=== PATIENT | male | born 1965 | race Caucasian/White ===

== ENCOUNTER 2021-08-04 20:31 | Emergency (ER) | payer BC ==
[2021-08-04] MEDS ORDERED: predniSONE 20 MG TAB ONE (21:30)
[2021-08-04] MEDS ORDERED: HYDROCODONE/APAP 10/325 TAB ONE (21:30)
--- NOTE | 2021-08-04 22:20 | EDPHYS ---
Physician Documentation [facility] Name: Ad Ham Age: 56 yrs Sex: Male : 1965 Arrival Date: 08/04/2021 Time: 20:35 Bed 3 Private MD: ED Physician Mo Stephens HPI: 08/04 22:21 This 56 yrs old Male presents to ER via Wheelchair with complaints of Low kb Back Pain, LT LEG NUMBNESS. 22:21 The patient presents with pain that is acute, with no known mechanism of injury. kb 22:21 The symptoms are located in the left low back. The pain radiates to the left leg. The kb problem was sustained without known cause. Onset: The symptoms/episode began/occurred last week. Modifying factors: The patient symptoms are alleviated by nothing, the patient symptoms are aggravated by any movement. Associated signs and symptoms: Pertinent positives: tingling, Pertinent negatives: abdominal pain, chest pain, constipation, dysuria, fever, headache, hematuria, incontinence, nausea, numbness, urinary retention, vomiting, weakness. Severity of symptoms: At their worst the symptoms were moderate, in the emergency department the symptoms are unchanged. The patient has not experienced similar symptoms in the past. The patient has been recently seen by a physician: the patient's primary care provider. Pt reports he has a pinched sciatic nerve on the left side and the pain pills his dr gave him weren't working tonight. States he has an MRI scheduled for 0900 tomorrow for this. Historical: - Allergies: 20:48 Aspirin; ld1 - Home Meds: 20:48 tramadol-acetaminophen 37.5-325 mg Oral tab 2 tabs every 6 hours [Active]; naproxen 500 ld1 mg Oral tab 1 tab 2 times per day [Active]; gabapentin 300 mg oral Tb24 1 tab twice a day [Active]; pantoprazole 40 mg oral grps 1 packet once daily [Active]; lisinopril 20 mg Oral tab 1 tab once daily [Active]; - PMHx: 20:48 Hypertensive disorder; ld1 - PSHx: 20:48 Appendectomy; Left ankle surgery; ld1 - Immunization history:: Adult Immunizations not up to date, Client reports having NOT received the Covid vaccine. - Social history:: Smoking status: Patient denies any tobacco usage or history of. Patient uses alcohol, occasionally. ROS: 22:20 Constitutional: Negative for fever, chills, and weight loss. kb 22:20 Back: Positive for pain at rest, pain with movement, radiated pain, of the left low back. 22:20 All other systems are negative. Exam: 22:20 Constitutional: This is a well developed, well nourished patient who is awake, alert, kb and in no acute distress. Head/Face: Normocephalic, atraumatic. ENT: Moist Mucous membranes Respiratory: Respirations even and unlabored. No increased work of breathing, no retractions or nasal flaring. Skin: Warm, dry with normal turgor. Normal color. MS/ Extremity: Pulses equal, no cyanosis. Neurovascular intact. Full, normal range of motion. Neuro: Awake and alert, GCS 15, oriented to person, place, time, and situation. Moves all extremities. Normal gait. Psych: Awake, alert, with orientation to person, place and time. Behavior, mood, and affect are within normal limits. Vital Signs: 20:46 BP 213 / 101; Pulse 89; Resp 20; Temp 98.2(TE); Pulse Ox 98% on R/A; Weight 105.23 kg; ld1 Height 5 ft. 7 in. (170.18 cm); Pain 10/10; 22:40 BP 176 / 93; Pulse 85; Resp 18; Pulse Ox 98% on R/A; Pain 6/10; df1 20:46 Body Mass Index 36.34 (105.23 kg, 170.18 cm) ld1 MDM: 21:09 Patient medically screened. kb 22:20 Data reviewed: vital signs, nurses notes. Data interpreted: Pulse oximetry: on room air kb is 98 %. Interpretation: normal. Counseling: I had a detailed discussion with the patient and/or guardian regarding: the historical points, exam findings, and any diagnostic results supporting the discharge/admit diagnosis, the need for outpatient follow up, a family practitioner, to return to the emergency department if symptoms worsen or persist or if there are any questions or concerns that arise at home. Administered Medications: 21:37 Drug: [place] (HYDROcodone-acetaminophen) 10 mg-325 mg 1 tabs Route: PO; df1 22:41 Follow up: Response: Pain is decreased df1 21:37 Drug: predniSONE 40 mg Route: PO; df1 22:41 Follow up: Response: No adverse reaction df1 22:39 Drug: Flexeril (cyclobenzaprine) 10 mg Route: PO; df1 22:41 Follow up: Response: Pain is decreased df1 Disposition: 23:23 Co-signature as Attending Physician, Mo Stephens MD. [email or web address] Disposition Summary: 08/04/21 22:19 Discharge Ordered Location: Home kb Condition: Stable kb Diagnosis - Sciatica, left side kb Followup: kb - With: Private Physician - When: 2 - 3 days - Reason: Recheck today's complaints, Continuance of care, Re-evaluation by your physician Followup: kb - With: Emergency Department - When: As needed - Reason: Worsening of condition Discharge Instructions: - Discharge Summary Sheet kb - Sciatica, [id number] kb Forms: - Medication Reconciliation Form kb - Thank You Letter kb - Antibiotic Education kb - Prescription Opioid Use kb Prescriptions: - Prednisone 20 mg Oral Tablet - take 1 tablet by ORAL route once daily for 5 days; 5 tablet; Refills: 0, kb Product Selection Permitted - Cyclobenzaprine 10 mg Oral Tablet - take 1 tablet by ORAL route every 8 hours As needed; 21 tablet; Refills: 0, kb Product Selection Permitted Signatures: Mae Castillo, HEATHC SIA-Mo Sandhu MD MD [facility] Chloe Kenny RN RN ld1 Anjelica Padron df1
--- NOTE | 2021-08-04 22:20 | ER ---
Nurse's Notes [facility] Name: Ad Ham Age: 56 yrs Sex: Male : 1965 Arrival Date: 08/04/2021 Time: 20:35 Bed 3 Private MD: Diagnosis: Sciatica, left side Presentation: 08/04 20:46 Chief complaint: Patient states: I have a swollen sciatic nerve, my left leg and foot ld1 are numb. Coronavirus screen: At this time, the client does not indicate any symptoms associated with coronavirus-19. Ebola Screen: No symptoms or risks identified at this time. Initial Sepsis Screen: Does the patient meet any 2 criteria? No. Patient's initial sepsis screen is negative. Does the patient have a suspected source of infection? No. Patient's initial sepsis screen is negative. Risk Assessment: Do you want to hurt yourself or someone else? Patient reports no desire to harm self or others. Onset of symptoms was August 04, 2021. 20:46 Method Of Arrival: Wheelchair ld1 20:46 Acuity: MADELIN 3 ld1 Triage Assessment: 20:48 General: Appears in no apparent distress. comfortable, Behavior is calm, cooperative, ld1 appropriate for age. Pain: Complains of pain in left foot and left leg Pain does not radiate. Pain currently is 10 out of 10 on a pain scale. Quality of pain is described as sharp, shooting, throbbing, Pain began 1 day ago. Is continuous. Neuro: Level of Consciousness is awake, alert, obeys commands, Oriented to person, place, time, situation. Cardiovascular: Capillary refill < 3 seconds Patient's skin is warm and dry. Cardiovascular: Denies chest pain. Respiratory: Airway is patent Respiratory effort is even, unlabored, Respiratory pattern is regular, symmetrical. GI: Abdomen is non-distended, obese. Musculoskeletal: Reports numbness in left foot and left leg since Numbness in left leg/foot began 3-4 days ago.. Historical: - Allergies: 20:48 Aspirin; ld1 - Home Meds: 20:48 tramadol-acetaminophen 37.5-325 mg Oral tab 2 tabs every 6 hours [Active]; naproxen 500 ld1 mg Oral tab 1 tab 2 times per day [Active]; gabapentin 300 mg oral Tb24 1 tab twice a day [Active]; pantoprazole 40 mg oral grps 1 packet once daily [Active]; lisinopril 20 mg Oral tab 1 tab once daily [Active]; - PMHx: 20:48 Hypertensive disorder; ld1 - PSHx: 20:48 Appendectomy; Left ankle surgery; ld1 - Immunization history:: Adult Immunizations not up to date, Client reports having NOT received the Covid vaccine. - Social history:: Smoking status: Patient denies any tobacco usage or history of. Patient uses alcohol, occasionally. Screenin:37 Abuse screen: Denies threats or abuse. Nutritional screening: No deficits noted. df1 Tuberculosis screening: No symptoms or risk factors identified. Fall Risk None identified. Assessment: 22:39 General: Appears uncomfortable, Behavior is calm, cooperative. Pain: Complains of pain df1 in lumbar, left leg. Neuro: No deficits noted. Cardiovascular: No deficits noted. Respiratory: Respiratory effort is even, unlabored, Respiratory pattern is regular, symmetrical. GI: No deficits noted. : No deficits noted. EENT: No deficits noted. Musculoskeletal: Reports numbness in left leg pain in left leg. Vital Signs: 20:46 BP 213 / 101; Pulse 89; Resp 20; Temp 98.2(TE); Pulse Ox 98% on R/A; Weight 105.23 kg; ld1 Height 5 ft. 7 in. (170.18 cm); Pain 10/10; 22:40 BP 176 / 93; Pulse 85; Resp 18; Pulse Ox 98% on R/A; Pain 6/10; df1 20:46 Body Mass Index 36.34 (105.23 kg, 170.18 cm) ld1 ED Course: 20:35 Patient arrived in ED. cf2 20:48 Triage completed. ld1 20:48 Arm band placed on right wrist. ld1 21:08 [facility] Cast[facility]C [facility] kb 21:08 Mo Stephens MD is Attending Physician. kb 21:10 Anjelica Padron is Primary Nurse. df1 21:37 Patient has correct armband on for positive identification. Bed in low position. Call df1 light in reach. Side rails up X 1. Adult w/ patient. 21:37 No provider procedures requiring assistance completed. Patient did not have IV access df1 during this emergency room visit. Administered Medications: 21:37 Drug: [place] (HYDROcodone-acetaminophen) 10 mg-325 mg 1 tabs Route: PO; df1 22:41 Follow up: Response: Pain is decreased df1 21:37 Drug: predniSONE 40 mg Route: PO; df1 22:41 Follow up: Response: No adverse reaction df1 22:39 Drug: Flexeril (cyclobenzaprine) 10 mg Route: PO; df1 22:41 Follow up: Response: Pain is decreased df1 Outcome: 22:19 Discharge ordered by . kb 22:41 Discharged to home via wheelchair. df1 22:41 Condition: stable 22:41 Discharge instructions given to patient, family, Instructed on discharge instructions, follow up and referral plans. medication usage, Demonstrated understanding of instructions, follow-up care, medications, Prescriptions given X 2. 22:42 Patient left the ED. df1 Signatures: Mae Castillo, SIA-C CHIEF MEDIA OFFICER-Keenan Elias cf2 Chloe Kenny, LIANNE RN ld1 Anjelica Padron df1
[2021-08-04] MEDS ORDERED: CYCLOBENZAPRINE 10 MG TAB ONE (22:35)
[2021-08-04 23:13] VITALS: BP 176/93; O2SAT 98
--- OUTSIDE RECORDS SUMMARY | 2021-08-15 08:32 | XMS REPORT | Continuity of Care Document ---
:1965 Author Organization [facility] Address [address] [place] [address] [address] [place] [address] Care Team Providers Name Role Phone RITCHIE Attending Clinician Unavailable Sammie Cruz Attending Clinician [phone] Problems This patient has no known problems. Allergies, Adverse Reactions, Alerts This patient has no known allergies or adverse reactions. Medications This patient has no known medications. Procedures This patient has no known procedures. Encounters Start End Encounter Admission Attending Care Care Encounter Source Date/Time Date/Time Type Type Clinicians Facility Department ID 2021-08-14 2021-08-14 Emergency [facility] [id number] [place] [address] 00:00:00 00:00:00 EVELIN [address] 2021-07-28 2021-07-28 Outpatient [facility] [id number] 00:00:00 00:00:00 , Antonieta [id number] Sammie [id number] 2021-07-15 2021-07-15 Outpatient [facility] [id number] 00:00:00 00:00:00 , Antonieta [id number] Sammie [id number] 2021-04-07 2021-04-07 Outpatient [facility] [id number] 00:00:00 00:00:00 , Antonieta [id number] Sammie [id number] 2021-04-07 2021-04-07 Outpatient [facility] padmini [id number] 00:00:00 00:00:00 , Antonieta [id number] Sammie [id number] 2021-04-07 2021-04-07 Outpatient [facility] [id number] 00:00:00 00:00:00 , Antonieta [id number] Sammie [id number] 2021-03-12 2021-03-12 Outpatient [facility] [id number] 00:00:00 00:00:00 , Antonieta [id number] Sammie [id number] Results This patient has no known results.
== END 2021-08-04 22:42 | disposition home or self-care (01) ==
LOC: ER 20:31
DX: M54.32 Sciatica, left side (principal); I10 Essential (primary) hypertension; Z88.6 Allergy status to analgesic agent
CPT/HCPCS: 99283; J7512